=== PATIENT | female | born 1950 | race Caucasian/White ===

== ENCOUNTER 2023-05-07 14:24 | Emergency (ER) | payer MEDICARE, SELFPAY ==
[2023-05-07 14:44] VITALS: BP 184/83; PULSE 66; RESP 14; TEMP 36.8; O2SAT 99; BMI 22.0
--- NOTE | 2023-05-07 15:06 | ED_ITS ---
HPI - Skin/Abscess/Foreign Bdy General: Chief complaint: Skin/Abscess/Foreign Body Stated complaint: shoulder pains, rash under armpit Time Seen by Provider: 05/07/23 15:01 Course Vital Signs: Vital signs: Vital Signs Temperature 98.3 F 05/07/23 14:44 Pulse Rate 66 05/07/23 14:44 Respiratory Rate 14 05/07/23 14:44 Blood Pressure 184/83 05/07/23 14:44 Pulse Oximetry 99 05/07/23 14:44 Oxygen Delivery Me thod Room Air 05/07/23 14:44 Discharge Plan Discharge Condition: Stable Coding Level of Care Code ED [employer] for Jess Parry
--- NOTE | 2023-05-07 15:15 | ED_ITS ---
HPI - Extremity Problem General: Chief complaint: Skin/Abscess/Foreign Body Stated complaint: shoulder pains, rash under armpit Time Seen by Provider: 05/07/23 15:01 Source: patient Mode of arrival: ambulatory Limitations: no limitations History of Present Illness: Patient is a 73-year-old female presents to ED today with complaint of right shoulder pain. Patient states she has had a rotator cuff repair in the shoulder several years ago. States she had been doing okay until several weeks ago. She does report a recent history of shingles as well that was located to the right thorax region. She states she was treated with antiviral medication. She states that rash has subsided however she is left with severe burning reporting that it is difficult for her to even wear a bra secondary to pain. MD Complaint: joint pain Onset (ago): day(s) Pain Consistency: constant Location: right and upper extremity (shoulder/thorax) Quality: burning Radiation: none Relieving factors: immobilization Exacerbating factors: range of motion Associated symptoms: Reports rash (a few weeks ago; subsided now; still having burning); Deny chest pain or fever(s) Review of Systems Const: Denies: fever(s), chills, body aches, fatigue or malaise Card: Denies: chest pain, palpitations, irregular heart rhythm, edema, swelling of feet/ankles, lightheadedness, syncope, pre-syncope or dyspnea on exertion Resp: Denies: dyspnea GI: Denies: abdominal pain, nausea or vomiting Musc: Reports: joint pain (R shoulder pain); Denies: neck pain, back pain, extremity pain, extremity swelling or joint swelling Skin/Breast: Reports: rash (a few weeks ago; subsided now; still having burning) Neuro: Denies: headache(s), numbness in extremities, weakness in extremities, sensory changes or dizziness Physical Exam Const: COMMON NORMALS: no acute distress, average body habitus, patient oriented x3, no limitations, healthy appearing, alert and well nourished GENERAL APPEARANCE: cooperative ORIENTATION/CONSCIOUSNESS: Yes awake, Yes oriented to person, Yes oriented to place and Yes oriented to time Resp: COMMON NORMALS: normal respiratory effort and clear to auscultation bilaterally AUSCULTATION: clear to auscultation bilaterally Cardio: COMMON NORMALS: regular rate and regular rhythm RATE: regular rate RHYTHM: regular rhythm Back/Pelvis: COMMON NORMALS: thoracic and lumbar spine normal to inspection, no thoracic nor lumbar tenderness and thoraco-lumbar ROM normal Extremity: COMMON NORMALS: normal to inspection and full ROM GENERAL: Yes normal exam except as noted RIGHT UPPER EXTREMITY: Yes shoulder joint (mild discomfort in R shoulder joint with ROM-maintains full ROM) Right shoulder: Yes Right shoulder joint inspection exam (normal gross inspection), Yes Right shoulder joint ROM exam (normal) and Yes Right shoulder joint neurovascular exam (normal) Neuro: COMMON NORMALS: patient oriented x3, moves all extremities, no focal motor deficits and no sensory deficits noted SENSORIUM/ORIENTATION: Yes alert, Yes oriented to person, Yes oriented to place and Yes oriented to time Skin: NARRATIVE SKIN EXAM: rash to R thorax subsided-some mild scarring present Course Vital Signs: Vital signs: Vital Signs Temperature 98.3 F 05/07/23 14:44 Pulse Rate 67 05/07/23 15:35 Respiratory Rate 16 05/07/23 15:35 Blood Pressure 184/83 05/07/23 14:44 Pulse Oximetry 98 05/07/23 15:35 Oxygen Delivery Me thod Room Air 05/07/23 14:44 MDM - Extremity (Nontraumatic) Medical Decision Making DDx includes post-herpetic neuralgia from her recent shingles vs R shoulder pathology. No trauma/injury. XR would be low yield. No concern for septic joint. Will RX for steroids/pain medications which would treat both conditions. Will have case management set her up with a primary care provider for further evaluation and treatment. Return ED precautions given. Medical Records I reviewed the patient's medical records. No radiology studies performed this visit Discharge Plan Discharge Patient Disposition: Home Clinical Impression: Post herpetic neuralgia Pain in right shoulder Qualifiers: Chronicity: acute Qualified Code(s): M25.511 - Pain in right shoulder Condition: Stable Prescriptions: New prednisone 10 mg tablet 10 mg PO DAILY 10 Days Qty: 27 0RF Rx Instructions: 6 tabs on days 1-2, 5 tabs on days 3, 4 tabs on day 4, 3 tabs on day 5, 2 tabs on day 6, 1 tab on day 7 hydrocodone-acetaminophen 5-325 mg tablet 1 tab PO Q6H PRN (Reason: pain) Qty: 14 0RF Discharge Orders: Discharge ED (Routine); Ordered 05/07/23 Ordered By: Jennie Nagel Activity Restrictions/Additional Instructions: As we discussed we will have case management reach out to you to set you up with a primary care provider for further evaluation. Coding Level of Care Code ED [employer] for Jess Parry
[2023-05-07] MEDS: dexamethasone 10 mg/mL INJ 8 MG IM (15:24)
[2023-05-07] MEDS: HYDROcodone-acetaminophen 5-325 mg Tablet 2 TAB PO (15:24)
[2023-05-07 15:35] VITALS: PULSE 67; RESP 16; O2SAT 98
--- NOTE | 2023-05-13 08:35 | DCPLANNER ---
Addendum entered by Nik Bhatt 05/20/23 11:02: I attempted to call patient again on 05/20/23 at 1039 am with no answer. I left a voicemail. Original Note: I attempted to call patient on 05/13/23 to see if we can get her setup with a PCP. I left patient a voicemail on 0837 on 05/13/23.
== END 2023-05-07 15:36 | disposition home or self-care (01) ==
PROVIDERS: Emergency Provider Physician Assistant
DX: M25.511 Pain in right shoulder (principal); B02.29 Other postherpetic nervous system involvement
CPT/HCPCS: 96372; 99284; J1100

== ENCOUNTER → 2023-05-23 11:12 | Outpatient (BNVA) | payer MEDICARE, SELFPAY | PROVIDERS: Visit Provider Family Medicine | DX: I10 Essential (primary) hypertension (principal); F32.1 Major depressive disorder, single episode, moderate; M25.511 Pain in right shoulder | CPT/HCPCS: 73030; 80053; 80061; 84439; 84443; 85025 ==

== ENCOUNTER 2023-06-25 14:25 | Outpatient (CLI) | payer MEDICARE, SELFPAY ==
--- NOTE | 2023-06-25 15:15 | MR_ITS ---
WS: [id number] MRI RIGHT SHOULDER NONCONTRAST TECHNIQUE: Sagittal T2, coronal T1, T2 and proton density imaging. Axial gradient PDE imaging. CLINICAL INFORMATION: OA, rotator cuff tear COMPARISON: None. FINDINGS: Advanced degenerative arthritis AC joint with subacromial spurring. Subacromial and subdeltoid fluid. Narrowing of the subacromial space. Prior postoperative changes rotator cuff repair with rotator cuf f anchors. Susceptibly artifact degrades some images. Chronic appearing deformity and thinning of the distal supraspinatus tendon. Distal anterior tendon repair appears intact. Suspected recurrent tear involving the mid and posterior supraspinatus tendon insertion with T2 signal abnormality and irregul arity. Chronic thinning of the posterior insertion supraspinatus tendon. Infraspinatus appears intact with tendinopathy. Chronic atrophy of the teres minor which appears intact. Subscapularis appears in tact. Hypertrophic changes along the bicipital groove. Biceps tendon appears intact within the bicipital gr oove with chronic atrophy. Medial subluxation along the proximal bicipital groove. Tendinopathy invol ving the intra-articular biceps tendon which appears intact. Advanced degenerative narrowing of the g lenohumeral articulation with hypertrophic changes. Chronic appearing degenerative fraying of the gle noid labrum. Hypertrophic changes along the humeral head and neck. IMPRESSION: 1. Advanced degenerative arthritis AC joint with subacromial spurring. Subacromial and subdeltoid fluid 2. Prior postoperative change rotator cuff repair. Chronic thinning of the distal supraspinatus with tendinopathy. Distal anterior tendon repair appears intact. 3. Suspected recurrent tear involving the posterior supraspinatus tendon with irregularity and T2 si gnal abnormality. 4. Tendinopathy infraspinatus. 5. Medial subluxation of the biceps tendon along the proximal bicipital groove. Atrophic biceps tend on. 6. Tendinopathy intra-articular biceps tendon. 7. Prominent hypertrophic changes along the bicipital groove.
== END 2023-06-25 14:26 | disposition home or self-care (01) ==
PROVIDERS: PCP Family Medicine; Visit Provider Family Medicine
DX: M19.011 Primary osteoarthritis, right shoulder (principal); M75.81 Other shoulder lesions, right shoulder; Z98.890 Other specified postprocedural states
CPT/HCPCS: 73221

== ENCOUNTER → 2023-07-03 12:58 | Outpatient (BNVA) | payer MEDICARE, SELFPAY | PROVIDERS: PCP Family Medicine; Referring Provider Family Medicine; Visit Provider Specialist | DX: S46.011A Strain of muscle(s) and tendon(s) of the rotator cuff of right shoulder, initial encounter; M75.81 Other shoulder lesions, right shoulder; X58.XXXA Exposure to other specified factors, initial encounter | CPT/HCPCS: 20610; 99204; J1100; J2795; J3301 ==

== ENCOUNTER 2023-08-05 12:14 | Outpatient (CLI) | payer MEDICARE, SELFPAY ==
--- NOTE | 2023-08-05 14:30 | MM_ITS ---
WS: [id number] BILATERAL 3D TOMOSYNTHESIS DIGITAL DIAGNOSTIC MAMMOGRAPHY WITH CAD CLINICAL INFORMATION: R breat pain, lumps HISTORY: RIGHT breast lumps COMPARISON: None available TECHNIQUE: Bilateral CC, MLO, and ML views. FINDINGS: The breasts are composed of heterogeneous fibroglandular density, which can limit the detection of sm all underlying mass lesions. Incidental punctate and lucent centered calcifications. Palpable markers RIGHT breast near the 10:00 and 5:00 positions. Ultrasound is pending. Slight nodula rity near the 5 o'clock position. Unremarkable LEFT breast. ULTRASOUND BREAST RIGHT TECHNIQUE: Ultrasound right breast focused area of concern. CLINICAL INFORMATION: R breat pain, lumps FINDINGS: Ultrasound RIGHT breast areas of concern at the 5:00 and 10:00 positions. Normal underlying parenchym al tissue. No cystic or solid lesions. No suspicious lesions to target for biopsy. IMPRESSION: MM/[place] [id number] BI-RADS: 2-Benign FOLLOW UP: 1 Year Follow-up Recommend return to annual screening mammography.
--- NOTE | 2023-08-05 15:00 | US_ITS ---
WS: [id number] BILATERAL 3D TOMOSYNTHESIS DIGITAL DIAGNOSTIC MAMMOGRAPHY WITH CAD CLINICAL INFORMATION: R breat pain, lumps HISTORY: RIGHT breast lumps COMPARISON: None available TECHNIQUE: Bilateral CC, MLO, and ML views. FINDINGS: The breasts are composed of heterogeneous fibroglandular density, which can limit the detection of sm all underlying mass lesions. Incidental punctate and lucent centered calcifications. Palpable markers RIGHT breast near the 10:00 and 5:00 positions. Ultrasound is pending. Slight nodula rity near the 5 o'clock position. Unremarkable LEFT breast. ULTRASOUND BREAST RIGHT TECHNIQUE: Ultrasound right breast focused area of concern. CLINICAL INFORMATION: R breat pain, lumps FINDINGS: Ultrasound RIGHT breast areas of concern at the 5:00 and 10:00 positions. Normal underlying parenchym al tissue. No cystic or solid lesions. No suspicious lesions to target for biopsy. IMPRESSION: US/US breast RT complete [id number] BI-RADS: 2-Benign FOLLOW UP: 1 Year Follow-up Recommend return to annual screening mammography.
== END 2023-08-05 12:15 | disposition home or self-care (01) ==
LOC: RAD 12:15
PROVIDERS: PCP Family Medicine; Visit Provider Family Medicine
DX: Z12.31 Encounter for screening mammogram for malignant neoplasm of breast (principal); N64.4 Mastodynia; Z12.39 Encounter for other screening for malignant neoplasm of breast
CPT/HCPCS: 76641; 77062; G0279

== ENCOUNTER → 2023-10-21 07:57 | Outpatient (BNVA) | payer MEDICARE, SELFPAY | PROVIDERS: PCP Family Medicine; Visit Provider Specialist | DX: M75.81 Other shoulder lesions, right shoulder (principal); S46.011A Strain of muscle(s) and tendon(s) of the rotator cuff of right shoulder, initial encounter; X58.XXXA Exposure to other specified factors, initial encounter | CPT/HCPCS: 99214 ==

== ENCOUNTER → 2023-11-26 10:36 | Outpatient (BNVA) | payer MEDICARE, SELFPAY | PROVIDERS: PCP Family Medicine; Visit Provider Orthopaedic Surgery | DX: M47.22 Other spondylosis with radiculopathy, cervical region (principal) | CPT/HCPCS: 72050; 99204 ==

== ENCOUNTER 2024-01-27 09:16 | Outpatient (CLI) | payer MEDICARE, SELFPAY ==
--- NOTE | 2024-01-27 09:21 | MR_ITS ---
WS: [id number] MR CERVICAL SPINE WO/W COMPARISON: MRI 2009 HISTORY: Neck Pain TECHNIQUE: Sagittal T1, T2 and T2 inversion recovery; axial T2, T2 gradient and fiesta. Post gadolini um imaging with fat saturation technique. FINDINGS: Some images are degraded by motion. Exaggeration of the normal cervical lordosis. No high-grade central canal stenosis. Cord signal is no rmal. No abnormal gadolinium enhancement. C2-3: Spinal canal and foramen are patent. C3-4: Moderate facet arthropathy worse on the LEFT. Moderate LEFT and mild RIGHT foraminal narrowing. Spinal canal is patent. C4-5: Moderate LEFT greater than RIGHT facet arthropathy. Severe LEFT bony foraminal narrowing. Spina l canal is patent. C5-6: Tiny shallow central protrusion. Moderate LEFT bony foraminal narrowing. Moderate facet arthrop athy worse on the LEFT. C6-7: Moderate facet arthropathy. Moderate LEFT bony foraminal narrowing. Spinal canal is patent. C7-T1: Spinal canal and foramen are patent. Small nodules in the thyroid. MR/MR cervical spine wo/w [id number] IMPRESSION: 1. Straightening of the normal cervical lordosis. No high-grade central canal narrowing. Cord signal is normal. 2. No abnormal gadolinium enhancement. 3. Spondylitic changes progressed since 2009 4. Moderate bony foraminal narrowing LEFT C3-C4 and moderate to severe LEFT C4 -5. 5. Moderate LEFT C5-C6 and LEFT C6-7 bony foraminal narrowing. 6. Moderate facet arthropathy C4-5 and C5-6 worse on the LEFT and C6-7
[2024-01-27] MEDS: gadobenate dimeglumine 20 mL vial IV (09:55)
== END 2024-01-27 09:17 | disposition home or self-care (01) ==
LOC: RAD 09:16
PROVIDERS: PCP Family Medicine; Visit Provider Orthopaedic Surgery
DX: M99.61 Osseous and subluxation stenosis of intervertebral foramina of cervical region (principal); M46.92 Unspecified inflammatory spondylopathy, cervical region; M50.321 Other cervical disc degeneration at C4-C5 level; M50.322 Other cervical disc degeneration at C5-C6 level; M50.323 Other cervical disc degeneration at C6-C7 level
CPT/HCPCS: 72156

== ENCOUNTER → 2024-03-17 15:08 | Outpatient (BNVA) | payer MEDICARE, SELFPAY | PROVIDERS: PCP Family Medicine; Visit Provider Orthopaedic Surgery | DX: M47.22 Other spondylosis with radiculopathy, cervical region (principal) | CPT/HCPCS: 99214 ==

== ENCOUNTER → 2025-01-04 13:15 | Outpatient (BNVA) | payer MEDICARE, SELFPAY | PROVIDERS: PCP Family Medicine; Visit Provider Nurse Practitioner Family | DX: L81.4 Other melanin hyperpigmentation (principal); L57.8 Other skin changes due to chronic exposure to nonionizing radiation; L91.8 Other hypertrophic disorders of the skin; R20.8 Other disturbances of skin sensation; L82.0 Inflamed seborrheic keratosis; L53.8 Other specified erythematous conditions; L57.0 Actinic keratosis | CPT/HCPCS: 17000; 17110; 99203 ==